=== PATIENT | male | born 2005 | race American Indian/Alaskan Native ===

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

== ENCOUNTER 2024-04-27 21:59 | Emergency (ER) | payer SELFPAY ==
[2024-04-27] MEDS: Albuterol/Ipratropium 3.0-0.5 MG/3 ML Neb Soln NEB ONE ×2 (22:12→22:28)
[2024-04-27] MEDS: predniSONE 20 MG Tab PO ONE (22:28)
[2024-04-27] MEDS: Albuterol 8 GM Inhaler INH ONE (22:59)
== END 2024-04-28 01:34 | disposition home or self-care (01) ==
LOC: MW.ED 21:59
DX: J45.901 Unspecified asthma with (acute) exacerbation (principal); Z75.8 Other problems related to medical facilities and other health care
CPT/HCPCS: 71045; 99285; A9270; J7620-GY